=== PATIENT | male | born 1980 | race Two or more races ===

== ENCOUNTER 2021-05-18 03:14 | Inpatient (IN) | payer OTHER ==
[~2021-05-18] VITALS: Ht 182.9 cm; Wt 116.8 kg
[2021-05-18 03:51] LABS: Basophils # (auto) 0.2 10 ^3/uL (0-0.2); Basophils % (auto) 2.3 % (0.0-2.0); Eosinophils # (auto) 0.4 10 ^3/uL (0-0.8); Hematocrit 40.7 % (41.0-53.0); Hemoglobin 14.3 g/dL (13.5-17.5); Lymphocytes # (auto) 1.9 10 ^3/uL (0.4-5.4); Lymphocytes % (auto) 19.3 % (10.0-50.0); Mean Corpuscular Hemoglobin 33.5 pg (28.0-32.0); Mean Corpuscular Hgb Conc. 35.3 g/dL (32.0-36.0); Monocytes # (auto) 0.6 10 ^3/uL (0-1.3); Monocytes % (auto) 6.2 % (0.0-12.0); Neutrophils # (auto) 6.8 10 ^3/uL (1.6-8.6); Neutrophils % (auto) 68.2 % (37.0-80.0); Red Blood Cells 4.28 10^6/uL (4.5-5.90); Red Cell Distribution Width 12.8 % (11.8-14.3)
[2021-05-18 04:06] LABS: INR 1.02 (0.9-1.15)
[2021-05-18 04:11] LABS: Albumin 3.8 g/dL (3.4-5.0); BUN/Creatinine Ratio 13.4; Calcium 8.7 mg/dL (8.5-10.1); Potassium 3.7 mmol/L (3.5-5.1)
[2021-05-18 04:22] LABS: Bilirubin, Total 0.5 mg/dL (0.2-1.0); Total Protein 7.8 g/dL (6.4-8.2)
[2021-05-18] MEDS ORDERED: IOHEXOL 350 MG/ML 100ML IJ ONE (04:51)
[2021-05-18] MEDS ORDERED: ENOXAPARIN SOD 120 MG/0.8 ML SYRINGE SC ONE (05:45)
[2021-05-18] MEDS ORDERED: ACETAMINOPHEN 325 MG TAB PO PRN (06:00)
[2021-05-18] MEDS ORDERED: MORPHINE SULFATE 4 MG/ML SYR/VIAL IV PRN (06:00)
[2021-05-18] MEDS ORDERED: DOCUSATE SOD 100 MG CAP PO PRN (06:00)
[2021-05-18] MEDS ORDERED: ONDANSETRON HCL 4 MG/2 ML VIAL IV PRN (06:00)
[2021-05-18] MEDS ORDERED: MORPHINE SULFATE INJECTION 2 MG/ML SYRG IV PRN (06:45)
[2021-05-18] MEDS: SODIUM CHLOR 0.9% PF (SALINE LOCK) 10ML VIAL/SYR IV SCH ×3 (07:20→22:06)
[2021-05-18 07:52] LABS: Basophils # (auto) 0.1 10 ^3/uL (0-0.2); Basophils % (auto) 0.8 % (0.0-2.0); Eosinophils # (auto) 0.4 10 ^3/uL (0-0.8); Eosinophils % (auto) 3.6 % (0.0-7.0); Hematocrit 41.4 % (41.0-53.0); Hemoglobin 14.1 g/dL (13.5-17.5); Lymphocytes # (auto) 2.6 10 ^3/uL (0.4-5.4); Lymphocytes % (auto) 26.4 % (10.0-50.0); Mean Corpuscular Hemoglobin 32.8 pg (28.0-32.0); Mean Corpuscular Hgb Conc. 34.1 g/dL (32.0-36.0); Mean Corpuscular Volume 96.1 fL (80.0-100.0); Monocytes # (auto) 0.8 10 ^3/uL (0-1.3); Monocytes % (auto) 8.4 % (0.0-12.0); Neutrophils % (auto) 60.8 % (37.0-80.0); Nucleated Red Blood Cells % 0.2 %; Red Blood Cells 4.31 10^6/uL (4.5-5.90); Red Cell Distribution Width 12.7 % (11.8-14.3); White Blood Cell 9.8 10^3/uL (4.4-10.8)
[2021-05-18] MEDS: HYDROcodone-ACET 5/325MG TAB PO PRN ×4 (07:59→22:06)
[2021-05-18 08:25] LABS: Albumin 3.5 g/dL (3.4-5.0); Calcium 8.6 mg/dL (8.5-10.1)
[2021-05-18 08:28] LABS: BUN/Creatinine Ratio 14.5; Bilirubin, Total 0.5 mg/dL (0.2-1.0); Total Protein 7.6 g/dL (6.4-8.2)
[2021-05-18] MEDS ORDERED: ENOXAPARIN SOD 120 MG/0.8 ML SYRINGE SC SCH (10:00)
[2021-05-18] MEDS: ASPirin 81 mg TAB PO SCH ×2 (10:51→12:23)
[2021-05-18] MEDS: FAMOTIDINE (10MG/ML) 2ML VL IV SCH ×2 (10:51→12:22)
[2021-05-18] MEDS: ENOXAPARIN SOD 120 MG/0.8 ML SYRINGE SC SCH ×2 (11:30→22:06)
[2021-05-18 13:00] VITALS: BP 125/70
[2021-05-18 13:22] VITALS: BP 108/72
[2021-05-18 17:00] VITALS: BP 104/65
[2021-05-18 22:00] VITALS: BP 114/68
[2021-05-19 04:42] LABS: Basophils # (auto) 0.1 10 ^3/uL (0-0.2); Basophils % (auto) 0.8 % (0.0-2.0); Eosinophils # (auto) 0.4 10 ^3/uL (0-0.8); Eosinophils % (auto) 4.1 % (0.0-7.0); Hematocrit 42.1 % (41.0-53.0); Hemoglobin 14.8 g/dL (13.5-17.5); Mean Corpuscular Hemoglobin 33.8 pg (28.0-32.0); Mean Corpuscular Hgb Conc. 35.1 g/dL (32.0-36.0); Mean Corpuscular Volume 96.1 fL (80.0-100.0); Monocytes # (auto) 0.7 10 ^3/uL (0-1.3); Monocytes % (auto) 8.5 % (0.0-12.0); Neutrophils # (auto) 5.6 10 ^3/uL (1.6-8.6); Neutrophils % (auto) 63.6 % (37.0-80.0); Red Blood Cells 4.38 10^6/uL (4.5-5.90); Red Cell Distribution Width 12.8 % (11.8-14.3); White Blood Cell 8.7 10^3/uL (4.4-10.8)
[2021-05-19 05:00] VITALS: BP 103/61
[2021-05-19 05:04] LABS: Albumin 3.5 g/dL (3.4-5.0); Calcium 8.8 mg/dL (8.5-10.1); Potassium 4.1 mmol/L (3.5-5.1)
[2021-05-19 05:09] LABS: BUN/Creatinine Ratio 14.3; Bilirubin, Total 0.4 mg/dL (0.2-1.0); Total Protein 7.6 g/dL (6.4-8.2)
[2021-05-19] MEDS: SODIUM CHLOR 0.9% PF (SALINE LOCK) 10ML VIAL/SYR IV SCH ×3 (06:29→21:45)
[2021-05-19 08:05] VITALS: BP 125/70
[2021-05-19] MEDS: ENOXAPARIN SOD 120 MG/0.8 ML SYRINGE SC SCH (09:30)
[2021-05-19] MEDS: FAMOTIDINE (10MG/ML) 2ML VL IV SCH (09:30)
[2021-05-19] MEDS: ASPirin 81 mg TAB PO SCH (09:30)
[2021-05-19] MEDS: HYDROcodone-ACET 5/325MG TAB PO PRN (09:31)
[2021-05-19 12:50] VITALS: BP 112/59
[2021-05-19 16:35] VITALS: BP 115/66
[2021-05-19] MEDS: RIVAROXABAN 15 MG TAB PO SCH (21:45)
[2021-05-19 22:00] VITALS: BP 124/78
[2021-05-19] MEDS ORDERED: RIVAROXABAN 15 MG TAB PO SCH (22:00)
[2021-05-19] MEDS: NITROGLYCERIN 0.4 MG SL TAB SL PRN (22:38)
[2021-05-20] VITALS (7 sets, daily range): BP systolic 103–125; BP diastolic 59–77
[2021-05-20] MEDS: SODIUM CHLOR 0.9% PF (SALINE LOCK) 10ML VIAL/SYR IV SCH ×3 (06:04→22:20)
[2021-05-20] MEDS: NITROGLYCERIN 0.4 MG SL TAB SL PRN ×2 (08:48→09:01)
[2021-05-20] MEDS: FAMOTIDINE (10MG/ML) 2ML VL IV SCH (09:45)
[2021-05-20] MEDS: ASPirin 81 mg TAB PO SCH (09:46)
[2021-05-20] MEDS: RIVAROXABAN 15 MG TAB PO SCH ×2 (09:46→22:20)
[2021-05-21 04:48] LABS: Alcohol, Urine < 3.0 mg/dL (0-10); Amphetamine Screen, Urine NEGATIVE (NEGATIVE); Barbiturate Scree,Urine NEGATIVE (NEGATIVE); Benzodiazephine Screen, Urine NEGATIVE (NEGATIVE); Cannabinoid Screen, Urine POSITIVE (NEGATIVE); Cocaine Screen, Urine NEGATIVE (NEGATIVE); Opiate Scree,Urine NEGATIVE (NEGATIVE); Phencyclidine Screen, Urine POSITIVE (NEGATIVE)
[2021-05-21 05:00] VITALS: BP 121/74
[2021-05-21] MEDS: SODIUM CHLOR 0.9% PF (SALINE LOCK) 10ML VIAL/SYR IV SCH ×3 (06:00→22:00)
[2021-05-21 08:52] VITALS: BP 113/66
[2021-05-21] MEDS: ASPirin 81 mg TAB PO SCH (09:19)
[2021-05-21] MEDS: FAMOTIDINE (10MG/ML) 2ML VL IV SCH (09:19)
[2021-05-21] MEDS: HYDROcodone-ACET 5/325MG TAB PO PRN (09:20)
[2021-05-21] MEDS: RIVAROXABAN 15 MG TAB PO SCH ×2 (09:20→22:00)
[2021-05-21 13:00] VITALS: BP 124/69
[2021-05-21 14:00] VITALS: BP 103/57
[2021-05-21 17:27] VITALS: BP 100/63
[2021-05-21 22:00] VITALS: BP 107/71
[2021-05-22 05:00] VITALS: BP 115/71
[2021-05-22] MEDS: SODIUM CHLOR 0.9% PF (SALINE LOCK) 10ML VIAL/SYR IV SCH (06:24)
[2021-05-22 09:00] VITALS: BP 106/65
[2021-05-22] MEDS: ASPirin 81 mg TAB PO SCH (10:03)
[2021-05-22] MEDS: FAMOTIDINE (10MG/ML) 2ML VL IV SCH (10:03)
[2021-05-22] MEDS: RIVAROXABAN 15 MG TAB PO SCH (10:03)
[2021-05-22] MEDS ORDERED: RIVA20TA PO ×2 (11:22→12:06)
[2021-05-22] MEDS ORDERED: RIVA10TA PO (11:22)
== END 2021-05-22 13:45 | disposition home or self-care (01) | DRG 197 ==
LOC: ER 03:14 → TELE 06:40 → TELE-WESTW 11:08
PROVIDERS: ADMIT Nurse Practitioner Family; ATTEND Family Medicine
DX: I82.4Z1 Acute embolism and thrombosis of unspecified deep veins of right distal lower extremity (principal); I26.99 Other pulmonary embolism without acute cor pulmonale; N17.9 Acute kidney failure, unspecified; E66.9 Obesity, unspecified; R73.03 Prediabetes; F10.10 Alcohol abuse, uncomplicated; Y90.9 Presence of alcohol in blood, level not specified; F17.210 Nicotine dependence, cigarettes, uncomplicated; Z86.711 Personal history of pulmonary embolism; Z79.01 Long term (current) use of anticoagulants; Z80.1 Family history of malignant neoplasm of trachea, bronchus and lung; Z86.718 Personal history of other venous thrombosis and embolism; Z91.19 Patient's noncompliance with other medical treatment and regimen; Z68.35 Body mass index [BMI] 35.0-35.9, adult; Z71.6 Tobacco abuse counseling
CPT/HCPCS: 36415; 71045; 71275; 80053; 80307; 83036; 83880; 84484; 85025; 85610; 85730; 93005; 93306; 93970; 96372; G0378; J3490